=== PATIENT | female | born 1995 | race Caucasian/White ===

== ENCOUNTER 2018-09-03 23:20 | Emergency (ER) | payer BC, OTHER ==
[~2018-09-03] VITALS: Ht 167.6 cm; Wt 104.3 kg
--- NOTE | 2018-09-04 01:06 | ED Integumentary General ---
General Chief Complaint: Bite-Animal/Human/Insect Stated Complaint: POSS SPIDER BITE Nursing Triage Note: Patient states that she noticed a bug bite around 2100 on 09-02-18. She states that it was about the size of a quarter and it has progressively gotten worse. Patient complains of itching and buring but not pain. Patient has a grapefruit sized, circular red spot on her inner left thigh. Patient believes it is a spider bite. Source: patient History of Present Illness Date Seen by Provider: Sep 04, 2018 Time Seen by Provider: 01:06 Initial Comments 23-year-old female presenting to the emergency departments with swelling and itching to an area on her left thigh. She reports that initially on 02 September he had started around the size of quarter. She thought that it was just a bug bite. Since then she has been noticing it has gotten much larger and has been itching and occasionally burning. She has a more central red spot in the larger erythematous area. There is mild induration to the Center area. There's been no drainage. She has also been occasionally feeling sick to her stomach and having some lightheaded sensation her headache. She had spoke with some coworkers all she was at work tonight at [employer] and they told her she should come get checked out. She came to the emergency department to be evaluated. She has had no fever or chills. She was worried that it might be a spider bite that was causing her symptoms. Allergies and Home Medications Allergies Coded Allergies: sulfamethoxazole (Verified Allergy, Severe, Hives/Swelling, 09/04/18) trimethoprim (Verified Allergy, Severe, Hives/Swelling, 09/04/18) Home Medications Cephalexin 500 Mg Tablet, 500 MG PO TID Prescribed by: LEROY AKERS on 09/04/18 0131 Patient Home Medication List Home Medication List Reviewed: Yes Review of Systems Review of Systems Constitutional: No chills, No fever; malaise EENTM: no symptoms reported Respiratory: No cough, No short of breath Cardiovascular: No chest pain Gastrointestinal: nausea (intermittent) Genitourinary: see HPI Musculoskeletal: no symptoms reported Skin: change in color (increasing erythema and induration to the left thigh) Past Huiqsxa-Wccfdm-Uherii Hx Past Med/Social Hx: Reviewed Nursing Past Med/Soc Hx Patient Social History Alcohol Use: Occasionally Uses Recreational Drug Use: No Smoking Status: Current Everyday Smoker 2nd Hand Smoke Exposure: Yes Recent Foreign Travel: No Contact w/Someone Who Travel: No Recent Infectious Disease Expo: No Recent Hopitalizations: No Physical Abuse: No Sexual Abuse: No Mistreated: No Fear: No Seasonal Allergies Seasonal Allergies: No Past Medical History Surgeries: Yes Gallbladder Respiratory: No Cardiac: No Neurological: No Genitourinary: No Gastrointestinal: No Musculoskeletal: No Endocrine: No HEENT: No Cancer: No Psychosocial: No Integumentary: No Physical Exam Vital Signs Vital Signs - First Documented 09/04/18 00:17 Temp 97.5 Pulse 104 Resp 18 B/P (MAP) 130/74 (92) Pulse Ox 97 O2 Delivery Room Air Capillary Refill : Less Than 3 Seconds General Appearance: WD/WN, no apparent distress HEENT: PERRL/EOMI, pharynx normal Neck: supple, normal inspection Cardiovascular: normal peripheral pulses, regular rate, rhythm Respiratory: chest non-tender, lungs clear, normal breath sounds Gastrointestinal: soft, no pulsatile mass Extremities: normal range of motion, non-tender, no pedal edema, normal capillary refill, inflammation (.Erythema and inflammation to the left proximal thigh. There is a central area of mild induration. There is no fluctuance or drainage) Neurologic/Psychiatric: alert, normal mood/affect, oriented x 3 Skin: warm/dry, other (erythema to the left proximal thigh with a central area of induration. There is no fluctuance or drainage) Progress/Results/Core Measures Results/Orders My Orders Orders - LEROY AKERS MD Cephalexin Capsule (Keflex Capsule) (09/04/18 01:45) Vital Signs/I&O 09/04/18 09/04/18 00:17 01:47 Temp 97.5 97.5 Pulse 104 104 Resp 18 18 B/P (MAP) 130/74 (92) 130/74 (92) Pulse Ox 97 97 O2 Delivery Room Air Room Air Blood Pressure Mean: 92 Progress Progress Note : Progress Note Treat the area of the left thigh with antibiotic and antihistamines. Encouraged to try using warm packs to see if that will help it come to head. Follow-up through the clinic for continued concerns or not improving with medication and treatment. Departure Impression Primary Impression: Insect bite of thigh, left, infected Qualified Codes: S70.362A - Insect bite (nonvenomous), left thigh, initial encounter; L08.9 - Local infection of the skin and subcutaneous tissue, unspecified; W57.XXXA - Bitten or stung by nonvenomous insect and other nonvenomous arthropods, initial encounter Disposition: HOME, SELF-CARE Condition: Stable Departure-Patient Inst. Decision time for Depature: 01:34 Referrals: ARNAV BOONE MD (PCP/Family) Primary Care Physician Patient Instructions: Insect Bites and Stings (DC) Add. Discharge Instructions: Take antibiotic until gone. Apply hot pack for 15-20 minutes every few hours to help the area come to a head and drain or heal as the antibiotics treat it Check with clinic if not improving by Friday Ibuprofen 800 mg every 8 hours as needed for pain and inflammation. Benadryl (diphenhydramine) 25 to 50 mg every 6 hours as needed for itching and redness. All discharge instructions reviewed with patient and/or family. Voiced understanding. Scripts Cephalexin (Cephalexin) 500 Mg Tablet 500 MG PO TID for 10 Days, #30 TAB 0 Refills Prov: LEROY AKERS MD 09/04/18 Work/School Note: Work Release Form Date Seen in the Emergency Department: Sep 03, 2018 Return to Work: Sep 04, 2018 Restrictions: No Restrictions LEROY AKERS MD Sep 04, 2018 01:06
[2018-09-04] MEDS ORDERED: CEPH500T PO (01:37)
[2018-09-04] MEDS ORDERED: CEPHALEXIN 250 MG (KEFLEX) CAP PO ONE (01:45)
[2018-09-04 01:47] VITALS: BP 130/74
== END 2018-09-04 01:47 | disposition home or self-care (01) ==
LOC: ER FS 23:24
DX: S70.362A Insect bite (nonvenomous), left thigh, initial encounter (principal); L08.9 Local infection of the skin and subcutaneous tissue, unspecified; F17.210 Nicotine dependence, cigarettes, uncomplicated; Z88.2 Allergy status to sulfonamides; Z88.1 Allergy status to other antibiotic agents; W57.XXXA Bitten or stung by nonvenomous insect and other nonvenomous arthropods, initial encounter
CPT/HCPCS: 99283